=== PATIENT | male | born 1955 | race Caucasian/White ===

== ENCOUNTER 2016-10-12 08:41 | Day surgery (SDC) | payer OTHER ==
[~2016-10-12] VITALS: Ht 172.7 cm; Wt 94.0 kg
== END 2016-10-12 13:42 | disposition home or self-care (01) ==
LOC: RAD.S 08:41 → EDSTATUS 10:30 → RAD.S 10:30
DX: N04.9 Nephrotic syndrome with unspecified morphologic changes (principal); E88.09 Other disorders of plasma-protein metabolism, not elsewhere classified; Z79.899 Other long term (current) drug therapy; Z88.0 Allergy status to penicillin; Z88.2 Allergy status to sulfonamides; Z88.1 Allergy status to other antibiotic agents